=== PATIENT | male | born 1970 | race Caucasian/White ===

== ENCOUNTER 2017-01-10 19:47 | Inpatient (IN) ==
[2017-01-10] MEDS ORDERED: Naloxone 0.4 MG/ML INJ IVP PRN (21:26)
[2017-01-10] MEDS ORDERED: Ondansetron 4 MG/2 ML VIAL IVP PRN (21:26)
[2017-01-10] MEDS ORDERED: 0.9 % Sodium Chloride 1,000 ML IVC SCH (21:30)
[2017-01-10] MEDS ORDERED: Dextrose Gel 15 GM PO PRN ×2 (21:43)
[2017-01-10] MEDS ORDERED: *HR* Dextrose 50 % in Water (Syg) 50 ML SYRINGE IVP PRN (21:43)
[2017-01-10] MEDS ORDERED: D5% in Water 1,000 ML IVC PRN (21:43)
[2017-01-10] MEDS ORDERED: Pantoprazole 40 MG VIAL IVP SCH (21:45)
--- NOTE | 2017-01-10 21:46 | Internal Med History&Physical ---
Date of Encounter: 01/10/17 Time of Encounter: 21:30 Assessment and Plan (1) UGI bleed Current visit: Yes Status: Acute Acute upper GI bleed - with hematemesis and epigastric pain - probably due to mass or possible gastritis and peptic ulcer disease - chronic alcohol abuse NPO, IV fluids, IV Protonix drip, IV Zofran, IV Morphine NG tube to LIWS Chest x-ray - bibasilar subsegmental atelectasis CT abdomen and pelvis - severely distended stomach possibly due to partial outlet obstruction, potential mass and second portion of duodenum, superimposed acute pancreatitis EKG - sinus rhythm with nonspecific ST-T changes Troponin - 0.02, cycle troponin BNP - pending Dr. Mendiola consult - patient may need EGD Cardiac telemetry, pulse ox, labs in a.m., monitor closely, guarded condition (2) Gastric outlet obstruction Current visit: Yes Status: Acute Severely distended stomach possibly due to partial gastric outlet obstruction with potential mass and second portion of duodenum Keep patient NPO, continue IV fluids Dr. Mendiola consult for EGD (3) Pancreatitis Current visit: No Status: Acute Acute on chronic pancreatitis - secondary to alcohol abuse Continue IV fluids, IV Protonix, NPO Qualifiers: Chronicity: acute Pancreatitis type: alcohol induced Acute pancreatitis complication: unspecified Qualified Code(s): K85.20 - Alcohol induced acute pancreatitis without necrosis or infection (4) COPD (chronic obstructive pulmonary disease) Current visit: Yes Status: Chronic COPD, stable - not an exacerbation Continue Albuterol breathing treatment as needed, O2 via NC Qualifiers: COPD type: emphysema Emphysema type: unspecified Qualified Code(s): J43.9 - Emphysema, unspecified (5) Alcohol abuse Current visit: Yes Status: Chronic Chronic alcohol abuse - patient states he drinks about 12 pack beer daily Also about cessation, monitor for withdrawal, CIWA protocol IV thiamine, Folic acid, IV fluids (6) CHF (congestive heart failure) Current visit: No Status: Chronic Chronic CHF, unspecified type - not in exacerbation Cardiac telemetry, pulse ox, strict intake output Patient will ideally need to be on fluid restriction, but due to GI bleed he is on IV fluids and Protonix drip Watch for signs of fluid overload Qualifiers: Congestive heart failure type: unspecified congestive heart failure type Congestive heart failure chronicity: chronic Qualified Code(s): I50.9 - Heart failure, unspecified (7) Hypertension Current visit: Yes Status: Chronic Essential hypertension, controlled, monitor Hold antihypertensives as blood pressure is low Qualifiers: Hypertension type: essential hypertension Qualified Code(s): I10 - Essential (primary) hypertension (8) DM type 2 (diabetes mellitus, type 2) Current visit: Yes Status: Chronic Type 2 diabetes mellitus, insulin-dependent, hyperglycemia Continue insulin sliding scale, glucose checks, Levemir Qualifiers: Diabetes mellitus complication status: without complication Diabetes mellitus lobsterman insulin use: with lobsterman use Qualified Code(s): E11.9 - Type 2 diabetes mellitus without complications; Z79.4 - laborer [employer] (current) use of insulin (9) Hypothyroid Current visit: Yes Status: Chronic Patient is on Levothyroxine at home Qualifiers: Hypothyroidism type: unspecified Qualified Code(s): E03.9 - Hypothyroidism , unspecified (10) DVT prophylaxis Current visit: Yes Status: Acute Avoid anticoagulants, continue SCDs Internal Medicine - H&P: HPI Chief complaint: Abdominal pain, GI bleed Admitted From: Emergency Dept Plans for Post Hospital Care: Home History of present illness: Mr. Wells is a 46 year old male with past medical history of chronic pink otitis, alcohol abuse, CHF, COPD, diabetes, GERD, hyperlipidemia, hypertension and anxiety and depression. Patient presents as a transfer from [facility] for upper GI bleed and gastric outlet obstruction. Examined in the room. Patient is awake and alert. Not in any distress. Able to provide all history. He is in discomfort due to hematemesis and abdominal pain. No family members at bedside. Patient states his abdominal pain started last night. He describes it as sharp and almost constant in the epigastric region. Rates it 8/10. He states he developed vomiting with multiple episodes of coffee-ground emesis earlier this morning. He also has nausea and persistent abdominal pain. Patient states he has been drinking at least 12 pack beer daily. He again tried to drink this morning but continued to have vomiting. He denies chest pain or shortness of breath this time. Patient is requesting IV Ativan for withdrawal. No alleviating factors. Aggravated with food intake. Denies diarrhea or headache or dizziness. No fever. No other associated symptoms. No other acute complaints. Initial workup in the ED shows severely distended stomach possibly due to partial outlet obstruction with a mass in the second portion of duodenum. H&H is stable. Chest x-ray shows bibasilar atelectasis. Dr. Mendiola who is on-call for GI bleed was consulted from the EGD. Patient will be on IV Protonix drip. We will insert NG tube. He is hemodynamically stable. Patient has been explained about his guarded condition and guarded prognosis. He understood and agreed. No unanswered questions. CODE STATUS full code. Past Med Surg Social Fam HX - Past Medical History Medical history: arthritis, CHF, COPD, diabetes, GERD, hyperlipidemia, hypertension, myocardial infarction, other Psychiatric history: anxiety, depression, PTSD - Past Surgical History Surgical History: appendectomy, cholecystectomy - Social History Smoking Status: Former smoker Smokeless Tobacco Status: No Alcohol use: heavy, recent Drug use: marijuana - Family History Mother Adopted: No Living Status: Still Living Hx Family Cardiac Disorders: Yes (chf) Hx Family Respiratory Disorders: No Hx Family Cancer: Yes (palate) Hx Family GI Disorders: No Hx Family Endocrine Disorder: No Hx Family Neuromuscular Disorders: No Hx Family Neurologic Disorders: No Hx Family HEENT Disorders: No Hx Family Autoimmune Disorders: No Internal Medicine - H&P: Meds Albuterol Neb [Proventil Neb] 2.5 mg IH QID 01/01/15 [History] Insulin Glargine [Lantus] 28 unit SQ QPM 01/01/15 [History] Levothyroxine [Synthroid] 175 mcg PO DAILY 01/01/15 [History] Albuterol Sulfate [Albuterol Inhaler] 2 puff IH Q6HR PRN 05/11/15 [History] Cholecalciferol (Vitamin D3) [Vitamin D3] 2,000 unit PO DAILY 05/11/15 [History] Fluticasone Propionate Nasal [Flonase] 50 mcg NS DAILY 05/11/15 [History] Isosorbide MONOnitrate (24 HR) [Imdur] 30 mg PO DAILY 05/11/15 [History] Carvedilol [Coreg] 25 mg PO BID 03/07/16 [History] Sucralfate [Carafate] 1 gm PO TIDAC 06/14/16 [History] Insulin ASPART [Novolog] 12 unit SQ TIDAC 09/25/16 [History] Dicyclomine [Bentyl] 20 mg PO QID PRN 01/10/17 [History] Docusate [Colace] 100 mg PO BID 01/10/17 [History] Lidocaine Patch [Lidoderm 5% patch] 2 each TP DAILY 01/10/17 [History] Meloxicam [Mobic] 15 mg PO DAILY 01/10/17 [History] Multivitamin [One Daily Essential] 1 each PO DAILY 01/10/17 [History] Omeprazole [PriLOSEC] 20 mg PO BIDAC 01/10/17 [History] OxyCODONE/APAP 5/325 [Percocet 5/325 MG] 1 each PO AD 01/10/17 [History] Sennosides [Senna] 8.6 mg PO DAILY 01/10/17 [History] Spironolactone [Aldactone] 25 mg PO BID 01/10/17 [History] Thiamine (B-1) [Vitamin B-1] 100 mg PO DAILY 01/10/17 [History] 3 Allergy/AdvReac Type Severity Reaction Status Date / Time budesonide [From Symbicort] Allergy Swelling Verified 10/27/16 08:56 of Lip/Tongue/Throat Formoterol [From Symbicort] Allergy Swelling Verified 10/27/16 08:56 of Lip/Tongue/Throat tramadol Allergy See Verified 10/27/16 08:56 Comments trazodone AdvReac Irritable Verified 10/27/16 08:56 All Systems PM: A 10-system review of systems was performed and is negative for pertinent findings except as documented above in the HPI. - Constitutional Constitutional: fatigue, no fever(s), no weakness - EENT Eyes: no blurry vision Nose, mouth and throat: dry mouth - Cardiovascular Cardiovascular ROS IM: no chest pain, no diaphoresis, no dyspnea, no dyspnea on exertion, no edema, no lightheadedness, no orthopnea, no palpitations, no syncope - Respiratory Respiratory: no cough, no dyspnea, no hemoptysis, no dyspnea on exertion, no wheezing, no chest congestion - Gastrointestinal Gastrointestinal: abdominal pain, bloating, cramping, heartburn, hematemesis, nausea, vomiting, no diarrhea, no hematochezia, no loose stools, no melena - Genitourinary Genitourinary ROS male: no dysuria - Neurological Neurological ROS: no abnormal gait, no convulsions, no dizziness, no focal weakness, no numbness, no tingling - Constitutional General appearance: Present: disheveled, A&O X 3, answers questions appropriately. Absent: cooperative Exam: Patient is in discomfort due to hematemesis and abdominal pain - Head Head exam: Present: atraumatic - Eye Eye exam: Present: EOMI - ENT ENT exam: Present: mucous membranes dry Additional comments: Patient does have some dried blood around mucous membranes - Respiratory Respiratory exam: Present: wheezes (Mild bilateral). Absent: accessory muscle use, rales, respiratory distress, rhonchi, tachypnea - Cardiovascular Cardiovascular exam: Present: RRR, +S1, +S2, tachycardia - GI/Abdominal GI/Abdominal exam: Present: distended, firm (In epigastric region), tenderness ( Epigastric tenderness), no peritoneal signs. Absent: guarding, soft - Extremities Exam Extremities exam: Present: pedal edema (Bilateral lower leg 2+ pitting edema with stasis dermatitis), radial pulses palpable and symmetrical. Absent: calf tenderness, cyanotic - Neurological Exam Neurological exam: Present: alert, oriented X3, no focal deficits. Absent: facial droop, speech deficit Internal Med - H&P Results - Labs CBC & Chem 7: 01/11/17 00:49 01/11/17 00:49
[2017-01-10 22:09] LABS: Hemoglobin 16.1 g/dL (12.9-16.9)
[2017-01-10] MEDS: *HR* Morphine 2 MG/ML SYRINGE IVP PRN (22:46)
[2017-01-10] MEDS ORDERED: Folic Acid 1 MG in D5% in Water 50 ML IVPB ONE (23:42)
[2017-01-10] MEDS ORDERED: Pantoprazole 80 MG in 0.9 % Sodium Chloride 250 ML IVPB ONE (23:42)
[2017-01-10] MEDS ORDERED: Thiamine (B-1) 100 MG in D5% in Water 50 ML IVPB SCH (23:45)
[2017-01-10] MEDS ORDERED: *HR* HYDROmorphone 2 MG/ML SYRINGE IVP ONE (23:47)
[2017-01-11] MEDS ORDERED: Albuterol 2.5 MG/3 ML NEBULIZER IH PRN
[2017-01-11 00:26] LABS: Hematocrit 47.2 % (37.5-50.1); Hemoglobin 16.2 g/dL (12.9-16.9)
[2017-01-11] MEDS: *HR* LORazepam 2 MG/ML VIAL IVP PRN ×4 (00:45→23:40)
[2017-01-11] MEDS: Pantoprazole 80 MG in 0.9 % Sodium Chloride 250 ML IVC SCH ×3 (00:46→16:15)
[2017-01-11] MEDS: 0.9 % Sodium Chloride 1,000 ML IVC SCH (00:48)
[2017-01-11] MEDS: Insulin LISPRO 300 UNITS/3 ML VIAL SQ SCH ×4 (00:48→19:39)
[2017-01-11 01:00] LABS: Basophils % 0.1 %; Hematocrit 43.8 % (37.5-50.1); Hemoglobin 15.5 g/dL (12.9-16.9); Immature Granulocytes % 0.6 % (0-4); Lymphocytes # 0.6 K/mcL (0.6-4.6); Lymphocytes % 5.6 %; Mean Corpuscular HGB Conc 35.4 g/dL (31.6-35.5); Mean Corpuscular Hemoglobin 33.4 pg (28.0-33.3); Mean Corpuscular Volume 94.4 fL (83.0-100.0); Monocytes # 0.6 K/mcL (0.0-1.3); Monocytes % 5.5 %; Neutrophils # 8.9 K/mcL (1.6-8.9); Platelet Count 176 K/mcL (140-400); Red Blood Count 4.64 M/mcL (4.19-5.50); Red Cell Distribution Width 13.3 % (11.5-14.5); Segmented Neutrophils % 88.2 %
[2017-01-11 01:01] LABS: INR 1.1; Prothrombin Time 12.1 Seconds (9.4-12.1)
[2017-01-11 01:10] LABS: Calcium 9.5 mg/dL (8.6-10.8); Magnesium 1.5 mg/dL (1.6-2.6); Potassium 3.5 mEq/L (3.5-4.5)
[2017-01-11] MEDS: *HR* Morphine 2 MG/ML SYRINGE IVP PRN ×5 (03:50→21:19)
--- NOTE | 2017-01-11 07:45 | Internal Medicine Consult Note ---
Date of Encounter: 01/11/17 Time of Encounter: 07:42 - Assessment and Plan (1) Abnormal CT of the abdomen Current Visit: Yes Status: Acute Assessment and plan: He does have gastric distention with possible mass effect in the stomach.. he does require EGD. Risks and benefits discussed. He had this about a year ago. No alternative studies that can get tissue. (2) UGI bleed Current Visit: Yes Status: Acute Assessment and plan: Supect gastritis or esophagitis; doubt variceal bleed. There has not been significan blood loss. NG is in place with mimimal coffee ground material in the tube. (3) Alcohol abuse Current Visit: Yes Status: Acute (4) Pancreatitis Current Visit: No Status: Chronic Qualifiers: Chronicity: acute Pancreatitis type: alcohol induced Acute pancreatitis complication: unspecified Qualified Code(s): K85.20 - Alcohol induced acute pancreatitis without necrosis or infection Internal Medicine - CN: HPI - Data of Consult Requesting Physician: Moisés Dior MD - Consult Narrative Reason for consult: Hematemesis/ Abnormal CT scan History of present illness: Mr. Wells is a 46 year old male who presented to [facility] ED with hematemesis and upper abd. pain. This is not new for him with long standing hx of Etoh abuse. he is feeling better this AM.. less shakey he states. Eval in the ED yesterday with distended stomach, possible stomach mass with obstruction. He admits gaining some wt. of recent, has had no change in bowels or melena. Some vague usual upper abd. pain has not been worse than usual. He gets his care at the [facility]. Past Med Surg Social Fam HX - Past Medical History Medical history: arthritis, CHF, COPD, diabetes, GERD, hyperlipidemia, hypertension, myocardial infarction, other Psychiatric history: anxiety, depression, PTSD - Past Surgical History Surgical History: appendectomy, cholecystectomy - Social History Smoking Status: Former smoker Smokeless Tobacco Status: No Alcohol use: heavy, recent Drug use: marijuana - Family History Mother Adopted: No Living Status: Still Living Hx Family Cardiac Disorders: Yes (chf) Hx Family Respiratory Disorders: No Hx Family Cancer: Yes (palate) Hx Family GI Disorders: No Hx Family Endocrine Disorder: No Hx Family Neuromuscular Disorders: No Hx Family Neurologic Disorders: No Hx Family HEENT Disorders: No Hx Family Autoimmune Disorders: No - Constitutional Constitutional: anorexia - Cardiovascular Cardiovascular ROS IM: no diaphoresis, no dyspnea, no lightheadedness, no palpitations, no syncope - Respiratory Respiratory: no dyspnea, no hemoptysis - Gastrointestinal Gastrointestinal: abdominal pain, hematemesis, nausea, no hematochezia, no loose stools, no melena - Neurological Neurological ROS: tremor(s), other (Questionable historian.) Internal Medicine - CN: Meds Albuterol Neb [Proventil Neb] 2.5 mg IH QID 01/01/15 [History] Insulin Glargine [Lantus] 28 unit SQ QPM 01/01/15 [History] Levothyroxine [Synthroid] 175 mcg PO DAILY 01/01/15 [History] Albuterol Sulfate [Albuterol Inhaler] 2 puff IH Q6HR PRN 05/11/15 [History] Cholecalciferol (Vitamin D3) [Vitamin D3] 2,000 unit PO DAILY 05/11/15 [History] Fluticasone Propionate Nasal [Flonase] 50 mcg NS DAILY 05/11/15 [History] Isosorbide MONOnitrate (24 HR) [Imdur] 30 mg PO DAILY 05/11/15 [History] Carvedilol [Coreg] 25 mg PO BID 03/07/16 [History] Sucralfate [Carafate] 1 gm PO TIDAC 06/14/16 [History] Insulin ASPART [Novolog] 12 unit SQ TIDAC 09/25/16 [History] Dicyclomine [Bentyl] 20 mg PO QID PRN 01/10/17 [History] Docusate [Colace] 100 mg PO BID 01/10/17 [History] Lidocaine Patch [Lidoderm 5% patch] 2 each TP DAILY 01/10/17 [History] Meloxicam [Mobic] 15 mg PO DAILY 01/10/17 [History] Multivitamin [One Daily Essential] 1 each PO DAILY 01/10/17 [History] Omeprazole [PriLOSEC] 20 mg PO BIDAC 01/10/17 [History] OxyCODONE/APAP 5/325 [Percocet 5/325 MG] 1 each PO AD 01/10/17 [History] Sennosides [Senna] 8.6 mg PO DAILY 01/10/17 [History] Spironolactone [Aldactone] 25 mg PO BID 01/10/17 [History] Thiamine (B-1) [Vitamin B-1] 100 mg PO DAILY 01/10/17 [History] 3 Allergy/AdvReac Type Severity Reaction Status Date / Time budesonide [From Symbicort] Allergy Swelling Verified 10/27/16 08:56 of Lip/Tongue/Throat Formoterol [From Symbicort] Allergy Swelling Verified 10/27/16 08:56 of Lip/Tongue/Throat tramadol Allergy See Verified 10/27/16 08:56 Comments trazodone AdvReac Irritable Verified 10/27/16 08:56 Internal Medicine - CN: Exam - Constitutional Vitals: Temp Pulse Resp BP Pulse Ox 98.2 F 98 18 107/68 94 01/11/17 07:17 01/11/17 07:17 01/11/17 07:17 01/11/17 07:17 01/11/17 07:17 General appearance IM: Present: cooperative, A&O X 2, no acute distress - Head Head exam: Present: atraumatic - Eye Eye exam: Present: EOMI, conjuntiva pink, sclera anicteric - ENT ENT exam: Present: mucous membranes dry Additional comments: Poor dentitia - Neck Neck exam general surgery: Present: full ROM, supple, trachea midline - Respiratory Respiratory exam: Present: decreased breath sounds, CTAB - Cardiovascular Cardiovascular exam IM: Present: RRR. Absent: JVD - GI/Abdominal GI/Abdominal exam IM: Present: soft, tenderness (Mild tenderness to palpation in the upper abd. ). Absent: rebound, rigid, splenomegaly Internal Medicine - CN: Reslt - Labs CBC & Chem 7: 01/11/17 00:49 01/11/17 00:49 Labs: Short CBC 01/10/17 01/11/17 01/11/17 Range/Units 22:00 00:10 00:49 WBC 10.1 (4.3-11.1) K/mcL Hgb 16.1 D 16.2 15.5 (12.9-16.9) g/dL Hct 45.0 47.2 43.8 (37.5-50.1) % Plt Count 176 (140-400) K/mcL Neutrophils # 8.9 (1.6-8.9) K/mcL BMP 01/11/17 00:49 Sodium 134 L Potassium 3.5 Chloride 70 L Carbon Dioxide 30 H BUN 26 D Creatinine 2.01 H Glucose 271 H Calcium 9.5 Cardiac Enzymes 01/11/17 Range/Units 06:12 Troponin I 0.12 H* (0-0.03) ng/mL - ABG Interpretation ABG results: PT/INR, D-dimer PT 12.1 Seconds (9.4-12.1) 01/11/17 00:49 Consult Discharge Plan - Plan [facility]errals: [facility] [Primary Care Provider[facility] -
[2017-01-11] MEDS ORDERED: *HR* Midazolam HCl 5 MG/5 ML VIAL IVP ONE ×2 (09:16→09:43)
[2017-01-11] MEDS ORDERED: *HR* FentaNYL (PF) 100 MCG/2 ML VIAL ONE (09:17)
[2017-01-11] MEDS ORDERED: *HR* FentaNYL (PF) 100 MCG/2 ML VIAL IVP ONE (09:43)
[2017-01-11] MEDS ORDERED: Simethicone 40 MG/0.6 ML MLS IR ONE (09:43)
[2017-01-11] MEDS ORDERED: Tetracaine/Benzocaine/Butamben 200MG/SPRAY (100SPY/BOT) MM ONE (09:43)
[2017-01-11] MEDS ORDERED: 0.9 % Sodium Chloride 1,000 ML IVC SCH (09:45)
--- NOTE | 2017-01-11 09:46 | History & Physical Report ---
Date of Encounter: 01/11/17 Time of Encounter: 09:45 24 Hour HP Update - Instructions Instructions: If the History and Physical is less than 30 days old and was completed prior to A.M. admission and or procedure and has NOT been updated on calendar day of procedure please complete this update prior to performing procedure. - Update Patient reports changes in Medical Condition: No Changes in examination, assessment, or condition: No Changes in Medication: No Surgery Remains Indicated: Yes Consent for Planned Operative Procedure(s) Verified: Yes - Pre-Operative Checklist Preoperative Checklist Indicated: No Prophylactic Antibiotic Ordered: No
--- NOTE | 2017-01-11 10:39 | Event Note ---
Date of Encounter: 01/11/17 Time of Encounter: 10:32 EGD Results. Findings: 1. 900 cc's melanotic thin fluid in the stomach. 2. No evidence of GI bleeding 3. At the junction of duodenal bulb and second portion, there is severe narrowing, near total obstruction.. does not look mass like; this was biopsied. Recc: 1. Will need Surgical Eval. 2. NPO 3. OG or NG placement. 4. I discussed with the Hospitalists via phone.
--- NOTE | 2017-01-11 10:56 | Internal Med Progress Note ---
Date of Encounter: 01/11/17 Time of Encounter: 10:54 - Assessment and plan (1) Abnormal CT of the abdomen Current Visit: Yes Status: Acute Assessment and plan: Appears to have either mass or extrinsic compression in the distal end of Duodenal bulb... could transvers to a minimal degree. Biopsies taken. Does not appear mass like. This is a marked change from 2 months ago. (2) UGI bleed Current Visit: Yes Status: Ruled-out Assessment and plan: No evidence of GI bleeding.. I suspect he has gastric varices proximally.. no fresh blood or ulcerations noted with EGD (3) Alcohol abuse Current Visit: Yes Status: Chronic (4) Pancreatitis Current Visit: No Status: Chronic Qualifiers: Chronicity: acute Pancreatitis type: alcohol induced Acute pancreatitis complication: unspecified Qualified Code(s): K85.20 - Alcohol induced acute pancreatitis without necrosis or infection - Constitutional Vitals: Temp Pulse Resp BP Pulse Ox 98.2 F 105 18 140/70 92 01/11/17 10:02 01/11/17 10:22 01/11/17 10:22 01/11/17 10:22 01/11/17 10:22 General appearance: Present: cooperative, A&O X 2, no acute distress Internal Medicine: Result - Labs CBC & Chem 7: 01/11/17 00:49 01/11/17 00:49 Labs: Short CBC 01/10/17 01/11/17 01/11/17 Range/Units 22:00 00:10 00:49 WBC 10.1 (4.3-11.1) K/mcL Hgb 16.1 D 16.2 15.5 (12.9-16.9) g/dL Hct 45.0 47.2 43.8 (37.5-50.1) % Plt Count 176 (140-400) K/mcL Neutrophils # 8.9 (1.6-8.9) K/mcL BMP 01/11/17 00:49 Sodium 134 L Potassium 3.5 Chloride 70 L Carbon Dioxide 30 H BUN 26 D Creatinine 2.01 H Glucose 271 H Calcium 9.5 Cardiac Enzymes 01/11/17 Range/Units 06:12 Troponin I 0.12 H* (0-0.03) ng/mL - ABG Interpretation ABG results: PT/INR, D-dimer PT 12.1 Seconds (9.4-12.1) 01/11/17 00:49 Consult Discharge Plan - Plan [facility]errals: [facility] [Primary Care Provider] -
[2017-01-11] MEDS: Thiamine (B-1) 100 MG in D5% in Water 100 ML IVPB SCH (12:01)
[2017-01-11] MEDS ORDERED: Insulin DETEMIR 100 UNIT/ML X5UNITS SQ SCH (18:00)
[2017-01-11] MEDS ORDERED: NON-FORMULARY MEDICATION 1 EACH EACH (Insulin Glargine [Lantus] 28 UNIT) SQ SCH (18:00)
--- NOTE | 2017-01-11 18:00 | Cardiology Consult Note ---
<Jeniffer Flaherty - Last Filed: 01/11/17 18:05> Date of Encounter: 01/11/17 Time of Encounter: 16:00 Assessment and Plan (1) UGI bleed Current Visit: Yes Status: Acute Per cardiology: -ADmitted with coffee ground emesis. -Known history of ETOH abuse. -Hemoglobin stable. -S/p endoscopy. -Management per primary and surgical services. (2) Elevated troponin Current Visit: Yes Status: Acute Per cardiology: -Troponins 0.02, 0.12, 0.17. -Troponins flat and adynamic in the setting of GI bleed, ELKE. -States had one episode of chest pain while vomiting. -Denies current chest pain. -ECG with no acute ischemic changes. -Reported history of CAD. -TTE pending. -Not on asa due to GI bleed. -Not on beta curt and statin due to NPO status with NG tube to suction. -Do not suspect NSTEMI, suspect demand ischemia related to above. NO cardiac rehab warranted. -Will obtain records from [facility]. -Further recommendations pending TTE. -Recommend starting beta curt and statin when ok with surgery services. (3) ELKE (acute kidney injury) Current Visit: Yes Status: Acute Per caridology: -ELKE on admission -Creatinine 2.01. -Management per primary service. Discussion w patient/family: The assessment and plan as outlined above was discussed with the patient who expressed understanding and agreement. All questions were answered. Thank you for involving us in the care of your patient. Please call with any questions. Discussed and reviewed with . History of Present Illness Consult date: 01/11/17 Requesting physician: Justina Leahy Consult reason: elevated troponin Chief complaint: Vomiting blood History of present illness: Mr. Wells is a 46 year old male with a relevant past medical history of reported RI, CHF, COPD, ETOH abuse, anxiety, PTSD, depression, pancreatitis, GI bleed. Patient presents to [facility] with complaints of vomiting blood. Patient states he had one episode of chest pain while vomitin blood. Patient denies current chest pain. Patient states he has had some increased shortness of breath and increased fatigue. Patient reports he had a LHC "years ago" at the [facility] in [place]. Past Med Surg Social Fam HX - Past Medical History Attestation: Yes The following information was validated with the patient. Source: patient, old records reviewed Medical history: arthritis, CHF, COPD, diabetes, GERD, hyperlipidemia, hypertension, myocardial infarction, other Psychiatric history: anxiety, depression, PTSD - Past Surgical History Surgical History: appendectomy, cholecystectomy - Social History Smoking Status: Former smoker Smokeless Tobacco Status: No Alcohol use: heavy, recent Drug use: marijuana - Family History Mother Adopted: No Living Status: Still Living Hx Family Cardiac Disorders: Yes (chf) Hx Family Respiratory Disorders: No Hx Family Cancer: Yes (palate) Hx Family GI Disorders: No Hx Family Endocrine Disorder: No Hx Family Neuromuscular Disorders: No Hx Family Neurologic Disorders: No Hx Family HEENT Disorders: No Hx Family Autoimmune Disorders: No Medications and Allergies Albuterol Neb [Proventil Neb] 2.5 mg IH QID 01/01/15 [History] Insulin Glargine [Lantus] 28 unit SQ QPM 01/01/15 [History] Levothyroxine [Synthroid] 175 mcg PO DAILY 01/01/15 [History] Albuterol Sulfate [Albuterol Inhaler] 2 puff IH Q6HR PRN 05/11/15 [History] Cholecalciferol (Vitamin D3) [Vitamin D3] 2,000 unit PO DAILY 05/11/15 [History] Fluticasone Propionate Nasal [Flonase] 50 mcg NS DAILY 05/11/15 [History] Isosorbide MONOnitrate (24 HR) [Imdur] 30 mg PO DAILY 05/11/15 [History] Carvedilol [Coreg] 25 mg PO BID 03/07/16 [History] Sucralfate [Carafate] 1 gm PO TIDAC 06/14/16 [History] Insulin ASPART [Novolog] 12 unit SQ TIDAC 09/25/16 [History] Dicyclomine [Bentyl] 20 mg PO QID PRN 01/10/17 [History] Docusate [Colace] 100 mg PO BID 01/10/17 [History] Lidocaine Patch [Lidoderm 5% patch] 2 each TP DAILY 01/10/17 [History] Meloxicam [Mobic] 15 mg PO DAILY 01/10/17 [History] Multivitamin [One Daily Essential] 1 each PO DAILY 01/10/17 [History] Omeprazole [PriLOSEC] 20 mg PO BIDAC 01/10/17 [History] OxyCODONE/APAP 5/325 [Percocet 5/325 MG] 1 each PO AD 01/10/17 [History] Sennosides [Senna] 8.6 mg PO DAILY 01/10/17 [History] Spironolactone [Aldactone] 25 mg PO BID 01/10/17 [History] Thiamine (B-1) [Vitamin B-1] 100 mg PO DAILY 01/10/17 [History] 3 Allergy/AdvReac Type Severity Reaction Status Date / Time budesonide [From Symbicort] Allergy Swelling Verified 10/27/16 08:56 of Lip/Tongue/Throat Formoterol [From Symbicort] Allergy Swelling Verified 10/27/16 08:56 of Lip/Tongue/Throat tramadol Allergy See Verified 10/27/16 08:56 Comments trazodone AdvReac Irritable Verified 10/27/16 08:56 All Systems Review: A 10-system review of systems was performed and is negative for pertinent findings except as documented above in the HPI. - Constitutional Constitutional: fatigue - Cardiovascular Cardiovascular: as per HPI, dyspnea on exertion - Gastrointestinal Gastrointestinal: coffee ground emesis, nausea Physical Examination Vital Signs, Last 4 Hours Temp Pulse Resp BP Pulse Ox 01/11/17 14:42 99.0 F 59 14 119/63 94 General: Conversant, No Apparent Distress HEENT: Atraumatic, Normocephaly, Mucus Membranes Moist Neck: No JVD, Normal carotid pulses Cardiac: Reg Rate and Rhythm, Normal S1 and S2, No Murmur Lungs: Normal Breath Sounds, No Wheeze, Rales, Rhonchi Neuro: Alert and responsive, No focal deficits noted Abdomen: Soft, Other (NG tube noted to suction with coffee ground aspirate noted.) Skin: No rashes noted on visualized skin Musculoskeletal: No Chest Wall Tenderness Extremities: No Clubbing, No Cyanosis, Normal Pulses, Other (Mild bilateral pedal edema noted, non-pitting. ) Results 01/11/17 00:49 01/11/17 00:49 Lab Results Active Medications Albuterol Sulfate (Proventil Neb) 2.5 mg IH [id number] PRN; Protocol PRN Reason: Wheezing Stop: 07/13/17 00:01 Dextrose/Water (Dextrose 50% (Syg)) 25 ml IVP AD PRN PRN Reason: Hypoglycemia Stop: 07/12/17 21:44 Glucagon (Glucagen) 1 mg IM ONCE PRN PRN Reason: Hypoglycemia Stop: 07/12/17 21:44 Glucose (Gluctose) 15 gm PO ONCE PRN PRN Reason: Hypoglycemia Stop: 07/12/17 21:44 Glucose (Gluctose) 30 gm PO ONCE PRN PRN Reason: Hypoglycemia Stop: 07/12/17 21:44 Dextrose (Dextrose 5%) 1,000 mls @ 100 mls/hr IVC .Q10H PRN PRN Reason: HYPOGLYCEMIA Stop: 07/12/17 21:44 Sodium Chloride (0.9 % Sodium Chloride) 1,000 mls @ 50 mls/hr IVC .Q20H MARC Stop: 01/12/17 15:44 Last Admin: 01/11/17 00:48 Dose: 50 mls/hr Pantoprazole Sodium 80 mg/ (Sodium Chloride) 250 mls @ 25 mls/hr IVC .Q10H MARC Stop: 07/12/17 23:46 Last Admin: 01/11/17 16:15 Dose: 25 mls/hr Thiamine HCl 100 mg/ Dextrose 101 mls @ 101 mls/hr IVPB DAILY MARC Stop: 07/13/17 09:01 Last Admin: 01/11/17 12:01 Dose: 101 mls/hr Insulin Detemir (Levemir) 28 unit SQ QPM MARC Stop: 07/13/17 18:01 Insulin Human Lispro (Humalog) 0 units SQ Q6HR MARC PRN Reason: Protocol Stop: 07/13/17 00:01 Last Admin: 01/11/17 12:18 Dose: 14 units Lorazepam (Ativan) 1 mg IVP Q6HR PRN PRN Reason: Anxiety Stop: 07/12/17 23:43 Last Admin: 01/11/17 17:52 Dose: 1 mg Morphine Sulfate (Morphine Sulfate) 2 mg IVP Q4HR PRN PRN Reason: Severe Pain (7-10) Stop: 07/12/17 21:27 Last Admin: 01/11/17 16:14 Dose: 2 mg Naloxone HCl (Narcan) 0.4 mg IVP Q2MIN PRN PRN Reason: Opioid Reversal Stop: 07/12/17 21:27 Ondansetron HCl (Zofran) 4 mg IVP Q8HR PRN PRN Reason: Nausea And Vomiting Stop: 07/12/17 21:27 Last Admin: 01/10/17 22:46 Dose: 4 mg Sucralfate (Carafate) 1 gm PO BID MARC Stop: 07/13/17 09:01 Last Admin: 01/11/17 11:58 Dose: Not Given Laboratory Tests 10/30/16 01/10/17 01/10/17 06:11 16:39 16:39 Creatinine 0.64 L 1.52 H Troponin I 0.02 01/11/17 01/11/17 01/11/17 00:49 06:12 12:29 Creatinine 2.01 H Troponin I 0.12 H* 0.17 H* - Imaging and Cardiology Chest Xray: report reviewed Echo: pending - EKG Interpretation EKG results cardiology: personally reviewed (ECG with SR, HR 92. RBBB noted.), other (Telemetry reviewed with average HR previous 12 hours noted to be 94, sinus rhythm. PVCs noted.) Consult Discharge Plan - Plan [facility]errals: [facility]Primary Care Provider[facility] - <Renny Snell - Last Filed: 01/12/17 19:23> Date of Encounter: 01/11/17 Time of Encounter: 17:30 - Attending Attestation I have personally performed a face to face evaluation on this patient. I have reviewed and agree with the care plan. History and Exam by me shows: 1. Elevated troponin, most consistent with demand ischemia and poor renal clearance with ELKE, troponin levels flat, not rising, not suggestive of NSTEMI, most consistent with type II myocardial infarction. 2. CAD - previous LHC at [facility], where pt follows for cardiac care, pt reports had one severe stensis which was not amendable to revascularization, pt estimates was performed 4-5 years ago, no recent ischemic eval, recommend pt does have stress imaging when bleeding issues resolve. He prefers to continue to get cardiac care at [facility]. Aspirin and beta curt on hold due to bleeding and hypotension, would resume meds as soon as cleared by GI. 3. ELKE - acute decrease in creatinine clearance, multifactorial, contributing to poor renal excretion of troponin, and slight elevation of blood levels. 4. GI bleed; H&H stable, defer to primary team. Assessment and Plan Discussion w patient/family: The assessment and plan as outlined above was discussed with the patient and/or family members who expressed understanding and agreement. All questions were answered. Thank you for involving us in the care of your patient. Please call with any questions. History of Present Illness History of present illness: Mr. Wells is a 46 year old male All Systems Review: A 10-system review of systems was performed and is negative for pertinent findings except as documented above in the HPI. Physical Examination Vital Signs, Last 4 Hours Temp Pulse Resp BP Pulse Ox 01/11/17 20:54 97.7 F 101 17 120/75 92 Results 01/12/17 07:29 01/12/17 07:29 Lab Results 01/11/17 01/11/17 01/11/17 00:10 00:49 00:49 WBC 10.1 Hgb 16.2 15.5 Hct 47.2 43.8 Plt Count 176 INR 1.1 Sodium Potassium Chloride Carbon Dioxide BUN Creatinine Glucose Calcium Magnesium Troponin I B-Natriuretic Peptide Lipase 01/11/17 01/11/17 01/11/17 00:49 00:49 06:12 WBC Hgb Hct Plt Count INR Sodium 134 L Potassium 3.5 Chloride 70 L Carbon Dioxide 30 H BUN 26 D Creatinine 2.01 H Glucose 271 H Calcium 9.5 Magnesium 1.5 L Troponin I 0.12 H* B-Natriuretic Peptide Lipase 197 H 01/11/17 01/11/17 01/11/17 06:12 12:29 18:49 WBC Hgb Hct Plt Count INR Sodium Potassium Chloride Carbon Dioxide BUN Creatinine Glucose Calcium Magnesium Troponin I 0.17 H* 0.16 H* B-Natriuretic Peptide 394 H Lipase
--- NOTE | 2017-01-11 18:43 | Internal Med Progress Note ---
Date of Encounter: 01/11/17 Time of Encounter: 18:41 - Assessment and plan (1) UGI bleed Current Visit: Yes Status: Acute Assessment and plan: GI was consulted, EGD showed No evidence of GI bleeding..continue PPI drip, monitor H/H (2) Gastric outlet obstruction Current Visit: Yes Status: Acute Assessment and plan: EGD done, showed duodenal lesion, will consult surgery (3) COPD (chronic obstructive pulmonary disease) Current Visit: Yes Status: Chronic Assessment and plan: no exacerbation Qualifiers: COPD type: emphysema Emphysema type: unspecified Qualified Code(s): J43.9 - Emphysema, unspecified (4) CHF (congestive heart failure) Current Visit: No Status: Chronic Assessment and plan: compensated Qualifiers: Congestive heart failure type: unspecified congestive heart failure type Congestive heart failure chronicity: chronic Qualified Code(s): I50.9 - Heart failure, unspecified (5) Alcohol abuse Current Visit: Yes Status: Chronic Assessment and plan: no signs for withdrawal, monitor on CIWA (6) Obstructive sleep apnea Current Visit: No Status: Chronic (7) Hypertension Current Visit: Yes Status: Chronic Assessment and plan: continue home meds Qualifiers: Hypertension type: essential hypertension Qualified Code(s): I10 - Essential (primary) hypertension (8) Elevated troponin Current Visit: Yes Status: Acute Assessment and plan: Cardiology was consulted, troponin is adynamic. Very unlikely non-STEMI. Pending echocardiogram - Subjective Interval history: Patient was admitted for acute upper GI bleeding. He had endoscopy done today, which did not show active bleeding, he has NG draining dark fluids. Patient is still complaining epigastric pain 6 out of 10 constant burning. - Constitutional Vitals: Temp Pulse Resp BP Pulse Ox 99.0 F 59 14 119/63 94 01/11/17 14:42 01/11/17 14:42 01/11/17 14:42 01/11/17 14:42 01/11/17 14:42 CONSTITUTIONAL: patient appears as an age appropriate male in no acute distress. EYES Clear sclerae, bilateral pupils are equal, reactive to light. EMOI. RESPIRATORY: No accessory muscle use, bilateral clear to auscultation, no wheezing, no crackles/rales. CARDIOVASCULAR: Regular heart rate, normal S1 and S2, no murmurs GASTROINTESTINAL: bowel sounds present, soft, no tenderness. MUSCULOSKELETAL: Joints in normal range of motion, no clubbing, no edema, no cyanosis. Bilateral peripheral pulses 2+. NEUROLOGIC: CN II to XII are grossly intact, no focal neurological deficit. General appearance: Present: cooperative, A&O X 2, no acute distress Internal Medicine: Result - Labs CBC & Chem 7: 01/11/17 00:49 01/11/17 00:49 Labs: Short CBC 01/10/17 01/11/17 01/11/17 Range/Units 22:00 00:10 00:49 WBC 10.1 (4.3-11.1) K/mcL Hgb 16.1 D 16.2 15.5 (12.9-16.9) g/dL Hct 45.0 47.2 43.8 (37.5-50.1) % Plt Count 176 (140-400) K/mcL Neutrophils # 8.9 (1.6-8.9) K/mcL BMP 01/11/17 00:49 Sodium 134 L Potassium 3.5 Chloride 70 L Carbon Dioxide 30 H BUN 26 D Creatinine 2.01 H Glucose 271 H Calcium 9.5 Cardiac Enzymes 01/11/17 01/11/17 Range/Units 06:12 12:29 Troponin I 0.12 H* 0.17 H* (0-0.03) ng/mL - ABG Interpretation ABG results: PT/INR, D-dimer PT 12.1 Seconds (9.4-12.1) 01/11/17 00:49 Consult Discharge Plan - Plan [facility]errals: [facility] [Primary Care Provider] -
[2017-01-12] MEDS: Insulin LISPRO 300 UNITS/3 ML VIAL SQ SCH ×3 (01:00→19:56)
[2017-01-12] MEDS: 0.9 % Sodium Chloride 1,000 ML IVC SCH (01:00)
[2017-01-12] MEDS: *HR* Morphine 2 MG/ML SYRINGE IVP PRN ×5 (01:01→21:25)
[2017-01-12] MEDS: Pantoprazole 80 MG in 0.9 % Sodium Chloride 250 ML IVC SCH ×2 (04:16→17:15)
[2017-01-12] MEDS: *HR* LORazepam 2 MG/ML VIAL IVP PRN ×2 (06:05→21:26)
[2017-01-12 07:47] LABS: Basophils % 0.1 %; Eosinophils % 0.1 %; Hemoglobin 14.1 g/dL (12.9-16.9); Immature Granulocytes % 0.8 % (0-4); Immature Platelets 5.3 % (1.1-6.1); Lymphocytes # 0.7 K/mcL (0.6-4.6); Lymphocytes % 5.9 %; Mean Corpuscular HGB Conc 35.3 g/dL (31.6-35.5); Mean Corpuscular Hemoglobin 33.3 pg (28.0-33.3); Mean Corpuscular Volume 94.6 fL (83.0-100.0); Mean Platelet Volume 10.2 fL (9.4-12.4); Monocytes # 1.2 K/mcL (0.0-1.3); Monocytes % 10.4 %; Neutrophils # 9.4 K/mcL (1.6-8.9); Platelet Count 147 K/mcL (140-400); Red Blood Count 4.23 M/mcL (4.19-5.50); Red Cell Distribution Width 13.4 % (11.5-14.5); Segmented Neutrophils % 82.7 %
[2017-01-12 08:03] LABS: Calcium 8.2 mg/dL (8.6-10.8); Magnesium 2.1 mg/dL (1.6-2.6); Potassium 2.7 mEq/L (3.5-4.5)
[2017-01-12] MEDS: Thiamine (B-1) 100 MG in D5% in Water 100 ML IVPB SCH (09:10)
[2017-01-12 12:38] LABS: ABG Base Excess 23 mEq/L (-2 to 3); ABG HCO3 50 mEq/L (21-27); ABG Oxygen Saturation 94 % (95-98); ABG PCO2 54 mmHg (35-45); ABG PH 7.57 pH Units (7.32-7.45); ABG PO2 62 mmHg (85-104); ABG TCO2 51 mEq/L (20-26)
--- NOTE | 2017-01-12 12:50 | Internal Med Progress Note ---
Date of Encounter: 01/12/17 Time of Encounter: 12:46 - Assessment and plan (1) UGI bleed Current Visit: Yes Status: Acute Assessment and plan: GI was consulted, EGD showed No evidence of active GI bleeding..continue PPI drip, monitor H/H (2) Gastric outlet obstruction Current Visit: Yes Status: Acute Assessment and plan: EGD done, showed duodenal lesion, will consult surgery, continue NG (3) COPD (chronic obstructive pulmonary disease) Current Visit: Yes Status: Chronic Assessment and plan: he was on 2 L NC at home for COPD, TARAS on CPAP at night no wheezing Qualifiers: COPD type: emphysema Emphysema type: unspecified Qualified Code(s): J43.9 - Emphysema, unspecified (4) CHF (congestive heart failure) Current Visit: No Status: Chronic Assessment and plan: compensated Qualifiers: Congestive heart failure type: unspecified congestive heart failure type Congestive heart failure chronicity: chronic Qualified Code(s): I50.9 - Heart failure, unspecified (5) Alcohol abuse Current Visit: Yes Status: Chronic Assessment and plan: no signs for withdrawal, monitor on CIWA (6) Obstructive sleep apnea Current Visit: No Status: Chronic Assessment and plan: home on CPAP at night, unable to tolerate due to NG (7) Hypertension Current Visit: Yes Status: Chronic Assessment and plan: change to IV metoprolol Qualifiers: Hypertension type: essential hypertension Qualified Code(s): I10 - Essential (primary) hypertension (8) Elevated troponin Current Visit: Yes Status: Acute Assessment and plan: Cardiology was consulted, troponin is adynamic. Very unlikely non-STEMI. Pending echocardiogram will change to IV metoprolol (9) Metabolic alkalosis Current Visit: Yes Status: Acute Assessment and plan: severe hypokalemia, will replace IV KCL, check BID ABG : Ph 7.5, PCO2 54, PaO2 62, metabolic alkalosis from continuing NG acid loss (10) DM type 2 (diabetes mellitus, type 2) Current Visit: Yes Status: Chronic Assessment and plan: reduced detmir ldose to 10 units BID add SSI, due to NPO Qualifiers: Diabetes mellitus complication status: without complication Diabetes mellitus intermodal owner operator truck driver insulin use: with intermodal owner operator truck driver use Qualified Code(s): E11.9 - Type 2 diabetes mellitus without complications; Z79.4 - buttermilk drier operator (current) use of insulin (11) Pancreatitis Current Visit: No Status: Chronic Assessment and plan: continue IVF and pain controll Qualifiers: Chronicity: acute Pancreatitis type: alcohol induced Acute pancreatitis complication: unspecified Qualified Code(s): K85.20 - Alcohol induced acute pancreatitis without necrosis or infection - Subjective Interval history: Patient was admitted for acute upper GI bleeding. He had endoscopy done on which did not show active bleeding. he is doing better, lNG is draining clear liquids. Patient is still complaining epigastric pain 6 out of 10 c, and pain from NG, lhe was on 2 L NC at home for COPD. - Constitutional Vitals: Temp Pulse Resp BP Pulse Ox 97.4 F L 84 14 139/78 96 01/12/17 10:18 01/12/17 10:18 01/12/17 10:18 01/12/17 10:18 01/12/17 10:18 CONSTITUTIONAL: patient appears as an age appropriate male in no acute distress. EYES Clear sclerae, bilateral pupils are equal, reactive to light. EMOI. RESPIRATORY: No accessory muscle use, bilateral reduced BS to auscultation, no wheezing, no crackles/rales. CARDIOVASCULAR: Regular heart rate, normal S1 and S2, no murmurs GASTROINTESTINAL: bowel sounds present, soft, mild tenderness to epigastric area. MUSCULOSKELETAL: Joints in normal range of motion, no clubbing, no edema, no cyanosis. Bilateral peripheral pulses 2+. NEUROLOGIC: CN II to XII are grossly intact, no focal neurological deficit. General appearance: Present: cooperative, A&O X 2, no acute distress Internal Medicine: Result - Labs CBC & Chem 7: 01/12/17 07:29 01/12/17 07:29 Labs: Short CBC 01/12/17 Range/Units 07:29 WBC 11.4 H (4.3-11.1) K/mcL Hgb 14.1 (12.9-16.9) g/dL Hct 40.0 (37.5-50.1) % Plt Count 147 (140-400) K/mcL Neutrophils # 9.4 H (1.6-8.9) K/mcL BMP 01/12/17 07:29 Sodium 140 Potassium 2.7 L Chloride 83 L Carbon Dioxide 43 H* BUN 42 H D Creatinine 1.56 H Glucose 71 Calcium 8.2 L Cardiac Enzymes 01/11/17 01/11/17 Range/Units 12:29 18:49 Troponin I 0.17 H* 0.16 H* (0-0.03) ng/mL - ABG Interpretation ABG results: ABG ABG pH 7.57 pH Units (7.32-7.45) H 01/12/17 12:20 ABG pCO2 54 mmHg (35-45) H 01/12/17 12:20 ABG pO2 62 mmHg (85-104) L 01/12/17 12:20 ABG O2 Saturation 94 % (95-98) L 01/12/17 12:20 PT/INR, D-dimer PT 12.1 Seconds (9.4-12.1) 01/11/17 00:49 - Impressions Impressions Echocardiogram 01/11/17 07:43 Impressions: Technically adequate exam. Normal sinus rhythm. LVEF 65%. Trace mitral regurgitation. Trace tricuspid regurgitation. Left Ventricular Wall Motion: Rest Echo Findings The apex, apical septal and apical lateral mtz were hypokinetic. All other wall segments showed normal motion. Findings: Study Quality * Technically adequate exam. ECG Findings * Normal sinus rhythm. Left Ventricle * LVEF 65%. * Normal LV chamber size, wall thickness and function. Right Ventricle * Normal right ventricular structure and function. Left Atrium * Normal left atrial size. Right Atrium * Normal right atrial size. Aortic Valve * Trileaflet aortic valve. * Trileaflet aortic valve with normal function. Mitral Valve * Normal mitral valve structure and function. * Trace mitral regurgitation. Tricuspid Valve * Normal tricuspid valve structure. * Trace tricuspid regurgitation. Pulmonic Valve * Pulmonic valve is not well visualized. Interatrial Septum * No evidence of PFO by color Doppler. Aorta * Normally sized aortic root. Pericardium * The pericardium appears normal. Consult Discharge Plan - Plan [facility]errals: [facility] [Primary Care Provider] -
[2017-01-12] MEDS ORDERED: Pantoprazole 80 MG in 0.9 % Sodium Chloride 250 ML IVC SCH (13:12)
[2017-01-12] MEDS ORDERED: Ondansetron 4 MG/2 ML VIAL IVP PRN (13:12)
[2017-01-12] MEDS ORDERED: D5% in Water 1,000 ML IVC PRN (13:12)
[2017-01-12] MEDS ORDERED: Dextrose Gel 15 GM PO PRN ×2 (13:12)
[2017-01-12] MEDS ORDERED: *HR* Dextrose 50 % in Water (Syg) 50 ML SYRINGE IVP PRN (13:12)
[2017-01-12] MEDS ORDERED: Albuterol 2.5 MG/3 ML NEBULIZER IH PRN (13:12)
[2017-01-12] MEDS ORDERED: Naloxone 0.4 MG/ML INJ IVP PRN (13:12)
[2017-01-12] MEDS ORDERED: 0.9 % Sodium Chloride 1,000 ML IVC SCH (13:12)
--- NOTE | 2017-01-12 15:18 | Cardiology Progress Note ---
Date of Encounter: 01/12/17 Time of Encounter: 14:30 Assessment and Plan (1) UGI bleed Current Visit: Yes Status: Acute Per cardiology: -ADmitted with coffee ground emesis. -Known history of ETOH abuse. -Hemoglobin stable. -S/p endoscopy. -Management per primary and surgical services. (2) Elevated troponin Current Visit: Yes Status: Acute Per cardiology: -Troponins 0.02, 0.12, 0.17, 0.16. -Troponins flat and adynamic in the setting of GI bleed, ELKE. -States had one episode of chest pain while vomiting. -Denies current chest pain. -ECG with no acute ischemic changes. -Reported history of CAD. -TTE with LVEF 65%, regional wall motion abnormalities noted. Unknown if new or not, however patient repots hx of CT with blockage not amendable to PCI. -Not on asa due to GI bleed. -On IV beta curt. -Not on statin due to NPO with NG to suction. -Do not suspect NSTEMI, suspect demand ischemia related to above. NO cardiac rehab warranted. -Patient is not a candidate for invasive cardiac procedures due to bleeding. -Cardiology will sign off. Recommend patient follow up with primary livestock buyer upon discharge. -Recommend starting beta curt and statin when ok with surgery services. (3) ELKE (acute kidney injury) Current Visit: Yes Status: Acute Per caridology: -ELKE on admission -Creatinine 2.01. -Improved today. -Management per primary service. Discussion w patient/family: The assessment and plan as outlined above was discussed with the patient who expressed understanding and agreement. All questions were answered. Thank you for involving us in the care of your patient. Please call with any questions. Discussed and reviewed with . Subjective Principal diagnosis: GI bleed Interval history: Patient states he feels ok. Objective Vital Signs, Last 4 Hours Temp Pulse Resp BP Pulse Ox 01/12/17 14:04 97.8 F 86 19 124/88 95 General: Conversant, No Apparent Distress HEENT: Atraumatic, Normocephaly, Mucus Membranes Moist Neck: No JVD, Normal carotid pulses Cardiac: Reg Rate and Rhythm, Normal S1 and S2, No Murmur Lungs: Normal Breath Sounds, No Wheeze, Rales, Rhonchi Neuro: Alert and responsive, No focal deficits noted Abdomen: Soft, Other (NG tube noted to suction) Skin: No rashes noted on visualized skin Musculoskeletal: No Chest Wall Tenderness Extremities: No Clubbing, No Cyanosis, Normal Pulses, Other (Mild pedal edema noted, non-pitting. ) Results 01/12/17 07:29 01/12/17 07:29 Lab Results Impressions Echocardiogram 01/11/17 07:43 Impressions: Technically adequate exam. Normal sinus rhythm. LVEF 65%. Trace mitral regurgitation. Trace tricuspid regurgitation. Left Ventricular Wall Motion: Rest Echo Findings The apex, apical septal and apical lateral mtz were hypokinetic. All other wall segments showed normal motion. Findings: Study Quality * Technically adequate exam. ECG Findings * Normal sinus rhythm. Left Ventricle * LVEF 65%. * Normal LV chamber size, wall thickness and function. Right Ventricle * Normal right ventricular structure and function. Left Atrium * Normal left atrial size. Right Atrium * Normal right atrial size. Aortic Valve * Trileaflet aortic valve. * Trileaflet aortic valve with normal function. Mitral Valve * Normal mitral valve structure and function. * Trace mitral regurgitation. Tricuspid Valve * Normal tricuspid valve structure. * Trace tricuspid regurgitation. Pulmonic Valve * Pulmonic valve is not well visualized. Interatrial Septum * No evidence of PFO by color Doppler. Aorta * Normally sized aortic root. Pericardium * The pericardium appears normal. Active Medications Albuterol Sulfate (Proventil Neb) 2.5 mg IH [id number] PRN; Protocol PRN Reason: Wheezing Stop: 07/13/17 00:01 Albuterol Sulfate (Albuterol Inhaler) 2 puff IH [id number] PRN PRN Reason: Shortness Of Breath Stop: 07/14/17 16:01 Dextrose/Water (Dextrose 50% (Syg)) 25 ml IVP AD PRN PRN Reason: Hypoglycemia Stop: 07/12/17 21:44 Glucagon (Glucagen) 1 mg IM ONCE PRN PRN Reason: Hypoglycemia Stop: 07/12/17 21:44 Glucose (Gluctose) 15 gm PO ONCE PRN PRN Reason: Hypoglycemia Stop: 07/12/17 21:44 Glucose (Gluctose) 30 gm PO ONCE PRN PRN Reason: Hypoglycemia Stop: 07/12/17 21:44 Sodium Chloride (0.9 % Sodium Chloride) 1,000 mls @ 50 mls/hr IVC .Q20H [facility] Stop: 01/12/17 15:44 Dextrose (Dextrose 5%) 1,000 mls @ 100 mls/hr IVC .Q10H PRN PRN Reason: HYPOGLYCEMIA Stop: 07/12/17 21:44 Thiamine HCl 100 mg/ Dextrose 101 mls @ 101 mls/hr IVPB DAILY [facility] Stop: 07/13/17 09:01 Potassium Chloride (Potassium Chloride 10 Meq/100ml) 10 meq in 100 mls @ 100 mls/hr IVPB Q1H [facility] Stop: 01/12/17 17:14 Last Admin: 01/12/17 13:37 Dose: 100 mls/hr Pantoprazole Sodium 80 mg/ (Sodium Chloride) 250 mls @ 25 mls/hr IVC Q10H [facility] Stop: 07/14/17 13:13 Potassium Chloride (Potassium Chloride 10 Meq/100ml) 10 meq in 100 mls @ 100 mls/hr IVPB Q1H [facility] Stop: 01/12/17 17:29 Insulin Detemir (Levemir) 10 unit SQ BID [facility] Stop: 07/14/17 21:01 Insulin Human Lispro (Humalog) 0 units SQ Q6HR [facility] PRN Reason: Protocol Stop: 07/13/17 00:01 Lorazepam (Ativan) 1 mg IVP Q6HR PRN PRN Reason: Anxiety Stop: 07/12/17 23:43 Metoprolol Tartrate (Lopressor) 5 mg IVP Q6HR [facility] Stop: 07/14/17 18:01 Morphine Sulfate (Morphine Sulfate) 2 mg IVP Q4HR PRN PRN Reason: Severe Pain (7-10) Stop: 07/12/17 21:27 Naloxone HCl (Narcan) 0.4 mg IVP Q2MIN PRN PRN Reason: Opioid Reversal Stop: 07/12/17 21:27 Ondansetron HCl (Zofran) 4 mg IVP Q8HR PRN PRN Reason: Nausea And Vomiting Stop: 07/12/17 21:27 Sucralfate (Carafate) 1 gm PO BID [facility] Stop: 07/13/17 09:01 Laboratory Tests 01/11/17 01/11/17 01/11/17 06:12 12:29 18:49 Hgb Potassium Creatinine Troponin I 0.12 H* 0.17 H* 0.16 H* 01/12/17 01/12/17 07:29 07:29 Hgb 14.1 Potassium 2.7 L Creatinine 1.56 H Troponin I - Imaging and Cardiology Chest Xray: report reviewed Echo: report reviewed - EKG Interpretation EKG results cardiology: other (Telemetry reviewed with average HR previous 12 hours noted to be 93, sinus rhythm. PVCs and couplets noted.) Consult Discharge Plan - Plan [facility]errals: [facility]Primary Care Provider[facility] -
[2017-01-12] MEDS ORDERED: *HR* Metoprolol 5 MG/5 ML VIAL IVP SCH (18:00)
[2017-01-12] MEDS: *HR* Metoprolol 5 MG/5 ML VIAL IVP SCH ×2 (20:05→23:38)
[2017-01-12] MEDS ORDERED: Insulin DETEMIR 100 UNIT/ML X5UNITS SQ SCH (21:00)
[2017-01-12] MEDS: Insulin DETEMIR 100 UNIT/ML X5UNITS SQ SCH (21:26)
[2017-01-13] MEDS: Insulin LISPRO 300 UNITS/3 ML VIAL SQ SCH ×4 (00:16→17:41)
[2017-01-13] MEDS: *HR* Morphine 2 MG/ML SYRINGE IVP PRN ×4 (01:30→15:55)
[2017-01-13] MEDS: Pantoprazole 80 MG in 0.9 % Sodium Chloride 250 ML IVC SCH (01:40)
[2017-01-13 03:20] LABS: Basophils % 0.2 %; Hematocrit 40.9 % (37.5-50.1); Hemoglobin 13.5 g/dL (12.9-16.9); Immature Granulocytes % 0.2 % (0-4); Lymphocytes # 0.8 K/mcL (0.6-4.6); Lymphocytes % 12.4 %; Mean Corpuscular Hemoglobin 32.6 pg (28.0-33.3); Mean Corpuscular Volume 98.8 fL (83.0-100.0); Mean Platelet Volume 9.8 fL (9.4-12.4); Monocytes # 0.6 K/mcL (0.0-1.3); Monocytes % 9.3 %; Neutrophils # 5.1 K/mcL (1.6-8.9); Platelet Count 100 K/mcL (140-400); Red Blood Count 4.14 M/mcL (4.19-5.50); Segmented Neutrophils % 77.9 %
[2017-01-13 03:40] LABS: BUN/Creatinine Ratio 30 (6-26); Calcium 8.4 mg/dL (8.6-10.8); Carbon Dioxide 36 mEq/L (19-29); Chloride 86 mEq/L (98-109); Glucose 192 mg/dL (70-99); Magnesium 1.8 mg/dL (1.6-2.6); Osmolality,Calculated 290 (280-300); Potassium 2.9 mEq/L (3.5-4.5); Sodium 135 mEq/L (136-145); eGFR For African Americans > 60 (> 60); eGFR For Non-African Americans > 60 (> 60)
[2017-01-13] MEDS: *HR* LORazepam 2 MG/ML VIAL IVP PRN ×3 (03:45→16:33)
[2017-01-13 04:12] LABS: Blood Urea Nitrogen 26 mg/dL (8-26)
[2017-01-13] MEDS ORDERED: Potassium Chloride 40 MEQ, Lidocaine 1% 2 ML in D5% in Water 500 ML IVPB ONE (05:09)
[2017-01-13] MEDS: *HR* Metoprolol 5 MG/5 ML VIAL IVP SCH ×3 (05:46→17:41)
[2017-01-13] MEDS: Insulin DETEMIR 100 UNIT/ML X5UNITS SQ SCH (08:49)
[2017-01-13] MEDS ORDERED: Thiamine (B-1) 100 MG in D5% in Water 100 ML IVPB SCH (09:00)
--- NOTE | 2017-01-13 10:52 | Internal Med Progress Note ---
<Steve Goldstein Steve - Last Filed: 01/13/17 11:18> Date of Encounter: 01/13/17 Time of Encounter: 08:00 - Assessment and plan (1) UGI bleed Current Visit: Yes Status: Acute Assessment and plan: Mr. Wells was admitted with an upper GI bleed with symptoms of hematemesis and epigastric discomfort. CT of the abdomen demonstrated dilated gastric cavity and second part of duodenal obstruction. - NG tube placed with 1740 mL drainage since placement. - EGD demonstrated normal esophagus, excessive gastric fluid. Gastric varices, acquired duodenal stenosis which received a biopsy, no signs of bleeding identified. At the time of the procedure 900 mL of melenic fluid was suctioned from the stomach. - Hemoglobin remains stable, no current signs of GI bleeding no output through NG tube currently. Plan: - Continue to monitor symptoms - Continue NG tube until further recommendations from general surgery. - Discontinue Protonix drip, start IV Protonix twice a day - May benefit from octreotide, the patient is resumed bleeding given gastric varices. - Continue oral Carafate when able to swallow and NG tube removed. (2) Gastric outlet obstruction Current Visit: Yes Status: Acute Assessment and plan: Duodenal lesion identified on EGD. Biopsy taken with results pending. General surgery consulted, spoke with Dr. Michael who will see and evaluate the patient. Plan: - Continue NG tube - Continue nothing by mouth - Await further recommendations per general surgery. (3) COPD (chronic obstructive pulmonary disease) Current Visit: Yes Status: Chronic Assessment and plan: Known history of COPD oxygen dependent 2 L baseline at home. Patient also has history of TARAS on CPAP at night. - Currently stable - Continue albuterol nebulizer when necessary Qualifiers: COPD type: emphysema Emphysema type: unspecified Qualified Code(s): J43.9 - Emphysema, unspecified (4) CHF (congestive heart failure) Current Visit: No Status: Chronic Assessment and plan: Mr. Wells is a history of GA and coronary artery disease without previous stent placement. Echocardiogram demonstrated preserved ejection fraction. - Continue to hold anticoagulation including aspirin in the setting of upper GI bleed. - Start atorvastatin 80 mg daily when patient is able to take oral medications, continue metoprolol Qualifiers: Congestive heart failure type: unspecified congestive heart failure type Congestive heart failure chronicity: chronic Qualified Code(s): I50.9 - Heart failure, unspecified (5) Alcohol abuse Current Visit: Yes Status: Chronic Assessment and plan: no signs for withdrawal, monitor on CIWA - Continue thiamine IV - Start folate daily (6) Hypertension Current Visit: Yes Status: Chronic Assessment and plan: History of hypertension, current blood pressure is well controlled on current regimen continue. Qualifiers: Hypertension type: essential hypertension Qualified Code(s): I10 - Essential (primary) hypertension (7) Hypothyroid Current Visit: Yes Status: Chronic Assessment and plan: Patient has a history of hypothyroidism, currently holding his levothyroxine given no oral intake with upper GI bleeding and obstruction. Home dose 175 g levothyroxine, continue when patient is able to resume oral intake. Qualifiers: Hypothyroidism type: unspecified Qualified Code(s): E03.9 - Hypothyroidism , unspecified (8) DM type 2 (diabetes mellitus, type 2) Current Visit: Yes Status: Chronic Assessment and plan: Patient known type II diabetic. Currently nothing by mouth - Continue low-dose sliding scale - To six-hour glucose checks. 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 (10) DVT prophylaxis Current Visit: Yes Status: Acute Assessment and plan: Lower extremity compression devices. (11) Metabolic alkalosis Current Visit: Yes Status: Acute Assessment and plan: severe hypokalemia, will replace IV KCL, check BID ABG 01/12/2017 : Ph 7.5, PCO2 54, PaO2 62, metabolic alkalosis from continuing NG acid loss - Currently no output from NG tube. (12) Hypokalemia Current Visit: Yes Status: Acute Assessment and plan: Current potassium 2.9 with NG tube placement. Likely secondary to significant gastric output associated with duodenal obstruction. - Currently receiving IV potassium given NG tube suction. - Recheck potassium level at 1400 - Subjective Interval history: Mr. Wells 46-year-old male is been seen and evaluated patient bedside this morning. He is alert awake interactive no acute distress. He complains of discomfort from his NG tube but denies any nausea vomiting or any spitting up of blood. He states he has been passing gas, and has not noticed any output through his NG tube on suction. He denies any abdominal pain, abdominal discomforts or bloating. He denies having a bowel movement but has passed gas. He denies noticing any blood in his stool prior. He states that he needs to stop his bad behaviors including drinking alcohol. After discussion regarding surgery evaluation he understands and will wait to have the NG tube out. - Constitutional Vitals: Temp Pulse Resp BP Pulse Ox 98.0 F 78 18 127/73 97 01/13/17 07:46 01/13/17 07:46 01/13/17 07:46 01/13/17 07:46 01/13/17 07:46 General appearance: Present: cooperative, A&O X 2, no acute distress Exam: General: Patient alert, awake, oriented 3, interactive, in no acute distress HEENT: Normocephalic, atraumatic, pupils equal reactive to light, nasal cavity with NG tube in place, mucous membranes dry. neck supple trachea midline no palpable lymphadenopathy, no thyromegaly. Chest: Symmetric bilateral correlating with respiratory effort, effort nonlabored. Cardiac: Irregularly irregular heart rate and rhythm, Radial pulses 2+ bilateral , posterior tibial and dorsal pedal pulses 2+ bilateral. Respiratory: Clear to auscultation all lung corcoran Abdomen: Soft, nontender, positive bowel sounds, no palpable masses appreciated on examination Extremities: Symmetric bilateral, bilateral lower extremities trace edema, bilateral lower extremity venous stasis dermatitis. patient moving all 4 extremities spontaneously. Neurologic: No focal deficits appreciated on examination. Face symmetric, muscle strength symmetric bilateral upper and lower extremities. Internal Medicine: Result - Labs CBC & Chem 7: 01/13/17 03:11 01/13/17 03:11 Labs: Short CBC 01/13/17 Range/Units 03:11 WBC 6.5 (4.3-11.1) K/mcL Hgb 13.5 (12.9-16.9) g/dL Hct 40.9 (37.5-50.1) % Plt Count 100 L (140-400) K/mcL Neutrophils # 5.1 (1.6-8.9) K/mcL BMP 11/27/17 03:11 Sodium 135 L Potassium 2.9 L Chloride 86 L Carbon Dioxide 36 H BUN 26 D Creatinine 0.88 Glucose 192 H Calcium 8.4 L - ABG Interpretation ABG results: ABG ABG pH 7.57 pH Units (7.32-7.45) H 01/12/17 12:20 ABG pCO2 54 mmHg (35-45) H 01/12/17 12:20 ABG pO2 62 mmHg (85-104) L 01/12/17 12:20 ABG O2 Saturation 94 % (95-98) L 01/12/17 12:20 PT/INR, D-dimer PT 12.1 Seconds (9.4-12.1) 01/11/17 00:49 Consult Discharge Plan - Plan [facility]errals: [facility]Primary Care Provider[facility] - 01/29/17 8:30 am (THIS APPOINTMENT IS WITH THE [facility]) <Marco Montes De Oca H - Last Filed: 01/13/17 18:16> Date of Encounter: 01/13/17 - Constitutional Vitals: Temp Pulse Resp BP Pulse Ox 97.7 F 73 16 117/69 97 01/13/17 16:10 01/13/17 17:48 01/13/17 17:48 01/13/17 16:10 01/13/17 17:48 Internal Medicine: Result - Labs CBC & Chem 7: 01/13/17 03:11 01/13/17 13:44 Labs: Short CBC 01/13/17 Range/Units 03:11 WBC 6.5 (4.3-11.1) K/mcL Hgb 13.5 (12.9-16.9) g/dL Hct 40.9 (37.5-50.1) % Plt Count 100 L (140-400) K/mcL Neutrophils # 5.1 (1.6-8.9) K/mcL BMP 01/13/17 01/13/17 03:11 13:44 Sodium 135 L Potassium 2.9 L 3.5 Chloride 86 L Carbon Dioxide 36 H BUN 26 D Creatinine 0.88 Glucose 192 H Calcium 8.4 L Liver Function 01/13/17 Range/Units 03:11 Total Bilirubin 1.7 H (0.2-1.2) mg/dL Direct Bilirubin 0.8 H (0.0-0.5) mg/dL AST 37 H (5-34) Units/L ALT 27 (0-55) Units/L Alkaline Phosphatase 101 (38-126) Units/L Albumin 2.5 L D (3.5-5.0) g/dL - ABG Interpretation ABG results: ABG ABG pH 7.57 pH Units (7.32-7.45) H 01/12/17 12:20 ABG pCO2 54 mmHg (35-45) H 01/12/17 12:20 ABG pO2 62 mmHg (85-104) L 01/12/17 12:20 ABG O2 Saturation 94 % (95-98) L 01/12/17 12:20 PT/INR, D-dimer PT 12.1 Seconds (9.4-12.1) 01/11/17 00:49 - Attending Attestation transfer to [facility]
--- NOTE | 2017-01-13 10:54 | General Surgery Consult Note ---
Addendum entered and electronically signed by Rachel Finch CNP 01/13/17 13: 19: Reviewed imaging and endoscopy by Dr. Reynoso and reviewed clinical course and findings with Dr. Michael. Pt is recommended transfer to [facility] given findings of gastric varices and portal HTN. Discussed with primary team resident and attending who are in agreement and will facility transfer. Thank you for allowing us to participate in Mr. Wells. Original Note: <Rachel Finch - Last Filed: 01/13/17 13:02> Date of Encounter: 01/13/17 Time of Encounter: 10:54 Assessment and Plan (1) Gastric outlet obstruction Current Visit: Yes Status: Acute Continue NG to LIWS. May have ice chips for pleasure. Chloraseptic at bedside for sore throat MRI vs MRCP to further evaluate findings at the duodenum and pancreas Continue GI and DVT prophylaxis Serial abdominal exams We will continue to follow along with you Will review with Dr. Michael (2) UGI bleed Current Visit: Yes Status: Acute See above (3) Alcohol abuse Current Visit: Yes Status: Chronic CIWAs per primary medicine Pt is willing to complete in-patient detox and rehab if indicated (patient voluntarily states this ) (4) DM type 2 (diabetes mellitus, type 2) Current Visit: Yes Status: Chronic Qualifiers: Diabetes mellitus complication status: without complication Diabetes mellitus longitudinal float operator insulin use: with longitudinal float operator use Qualified Code(s): E11.9 - Type 2 diabetes mellitus without complications; Z79.4 - intermediate (current) use of insulin; Z79.4 - intermediate (current) use of insulin; Z79.4 - intermediate ( current) use of insulin; Z79.4 - intermediate (current) use of insulin (5) Pancreatitis Current Visit: No Status: Chronic Qualifiers: Chronicity: acute Pancreatitis type: alcohol induced Acute pancreatitis complication: unspecified Qualified Code(s): K85.20 - Alcohol induced acute pancreatitis without necrosis or infection History of Present Illness Consult date: 01/13/17 (Dr. Marck Reynoso) Reason for consult: other (GIB) Requesting physician: Moisés Dior History of present illness: Consulted Physician: Dr. Marck Reynoso Reason for Consult: Duodenal/pancreatic mass Mikel is a 46 year old male with a past history of T2 DM, COPD, ASHD , AMI (unknown vessel that was not amenable to revascularization, CHF, hypertension, gastroenteritis, alcoholism (admits to8-24 beers daily), acute and chronic pancreatitis, smoking history of 2 to 3 packs per day for greater than 30 years, state smoking cessation approximately 2 months ago, recreational illicit marijuana use approximately weekly, and a surgical history of cholecystectomy, appendectomy, and right leg surgery. He does not work. He reports a history of a colonoscopy completed by the [facility]; however, he is unable to remember the date and he denies an abnormal pathology regarding; however per Dr. Cali note on his EGD completed on 01/11/2017 there were significant changes in the stomach and duodenum detailed below. He presented on 01/10/2017 with complaints of abdominal discomfort, upper G.I. bleed and gastric outlet obstruction (transferred from [facility]). He reports a 2 day history of abdominal pain, denies changes in bowel habits, black, bloody, or tarry stool prior to admission. He states that the coffee ground emesis started on the morning of admission. He also reported nausea and cold chills. He again stated that he drinks at least 8 to 24 beers daily and states that he did drink the morning of presentation "to call my stomach down." He denies chest pain, shortness of breath, headache, dizziness, but endorses abdominal discomfort and coffee ground emesis as previously described, feelings of cold chills, generalized weakness and fatigue, nausea, vomiting, anxiety and depression as well as alcoholism. The initial workup in the ED showed a severely distended stomach possibly due to a partial outlet obstruction with a mass in the 2nd portion of the duodenum. Dr. Cali was uncalled for G.I. bleed and completed in EGD on 01/11/2017 which revealed a normal esophagus, excessive fluid in the entire stomach, varices were found in the gastric body, and acquired severe stenosis was found in the 2nd portion of the duodenum and was transverse but not fully. Biopsies were taken at that time. There was approximately 900 mL of melancholic fluids suctioned from the stomach during the procedure. In NG tube was left in place. Cardiology was consult for an elevated troponin thought to be related to demand ischemia. An echocardiogram was completed during the submission which revealed ejection fraction of 65%, trace mitral and tricuspid regurgitation, and normal sinus rhythm. His hemoglobin is stable at 13.5. He has not received any transfusions the submission. Past Med Surg Social Fam HX - Past Medical History Source: patient, old records reviewed Medical history: arthritis, CHF, COPD, diabetes, GERD, hyperlipidemia, hypertension, myocardial infarction, other Psychiatric history: anxiety, depression, PTSD - Past Surgical History Surgical History: appendectomy, cholecystectomy, other (right leg orthopedic surgery) - Social History Smoking Status: Former smoker Packs per day: 3 PPD for >30 years, quit in 10/2016 Smokeless Tobacco Status: No Alcohol use: heavy, recent Drug use: marijuana Occupational status: unemployed, retired Current living situation: Home - Independent Activity Level: Independent ambulation Recent Out of Country Travel Within the Last 8 Weeks: No Exposure or Possible Exposure to Illness During Travel: No - Family History Mother Adopted: No Living Status: Still Living Hx Family Cardiac Disorders: Yes (chf) Hx Family Respiratory Disorders: No Hx Family Cancer: Yes (palate) Hx Family GI Disorders: No Hx Family Endocrine Disorder: No Hx Family Neuromuscular Disorders: No Hx Family Neurologic Disorders: No Hx Family HEENT Disorders: No Hx Family Autoimmune Disorders: No Medications and Allergies 3 Allergy/AdvReac Type Severity Reaction Status Date / Time budesonide [From Symbicort] Allergy Swelling Verified 10/27/16 08:56 of Lip/Tongue/Throat Formoterol [From Symbicort] Allergy Swelling Verified 10/27/16 08:56 of Lip/Tongue/Throat tramadol Allergy See Verified 10/27/16 08:56 Comments trazodone AdvReac Irritable Verified 10/27/16 08:56 Review of Systems All systems PM: reviewed and no additional remarkable complaints except as stated All systems PM: A 10-system review of systems was performed and is negative for pertinent findings except as documented above in the HPI. General Surgery Exam Initial Vital Signs Pulse Ox 93 01/10/17 22:15 - General physical appearance well developed, well nourished, no distress - Eyes normal ocular movement - ENT normal nares (Left NG noted), normal mucosa, atraumatic, normocephalic - Neck trachea midline, no venous distension - Respiratory normal expansion, normal respiratory effort, clear to percussion, clear to auscultation - Cardiovascular Cardiovascular exam: Present: RRR, 15, 16 - Abdomen Abdomen general surgery: Present: bowel sounds present, soft, tender Abdominal Tenderness: Present: RUQ, LUQ - Integumentary Integumentary general surgery: Present: warm and dry, no abnormal pigmentation - Neurologic Present: CN 2-12 grossly intact, normal coordination, normal sensation - Musculoskeletal Present: normal gait, normal posture - Psychiatric Psychiatric general surgery: Present: A&Ox3, appropriate, oriented to person, oriented to place, oriented to time, speech is normal, memory intact Exam Initial Vital Signs Pulse Ox 93 01/10/17 22:15 Results - Labs 01/13/17 03:11 01/13/17 03:11 Abnormal lab results RBC 4.14 M/mcL (4.19-5.50) L 01/13/17 03:11 Plt Count 100 K/mcL (140-400) L 01/13/17 03:11 ABG pH 7.57 pH Units (7.32-7.45) H 01/12/17 12:20 ABG pCO2 54 mmHg (35-45) H 01/12/17 12:20 ABG pO2 62 mmHg (85-104) L 01/12/17 12:20 ABG HCO3 50 mEq/L (21-27) H 01/12/17 12:20 ABG Total CO2 51 mEq/L (20-26) H 01/12/17 12:20 ABG O2 Saturation 94 % (95-98) L 01/12/17 12:20 ABG Base Excess 23 mEq/L (-2 to 3) H 01/12/17 12:20 Sodium 135 mEq/L (136-145) L 01/13/17 03:11 Potassium 2.9 mEq/L (3.5-4.5) L 01/13/17 03:11 Chloride 86 mEq/L (98-109) L 01/13/17 03:11 Carbon Dioxide 36 mEq/L (19-29) H 01/13/17 03:11 BUN/Creatinine Ratio 30 (6-26) H 01/13/17 03:11 Glucose 192 mg/dL (70-99) H 01/13/17 03:11 POC Glucose 152 (58-89) H 01/13/17 00:14 Calcium 8.4 mg/dL (8.6-10.8) L 01/13/17 03:11 Troponin I 0.16 ng/mL (0-0.03) H* 01/11/17 18:49 B-Natriuretic Peptide 394 pg/mL (0-100) H 01/11/17 06:12 Lipase 197 Units/L (8-78) H 01/11/17 00:49 Diabetes panel 01/13/17 Range/Units 03:11 Sodium 135 L (136-145) mEq/L Potassium 2.9 L (3.5-4.5) mEq/L Chloride 86 L (98-109) mEq/L Carbon Dioxide 36 H (19-29) mEq/L BUN 26 D (8-26) mg/dL Creatinine 0.88 (0.72-1.25) mg/dL Glucose 192 H (70-99) mg/dL Calcium 8.4 L (8.6-10.8) mg/dL Calcium panel 01/13/17 Range/Units 03:11 Calcium 8.4 L (8.6-10.8) mg/dL Pituitary panel 01/13/17 Range/Units 03:11 Sodium 135 L (136-145) mEq/L Potassium 2.9 L (3.5-4.5) mEq/L Chloride 86 L (98-109) mEq/L Carbon Dioxide 36 H (19-29) mEq/L BUN 26 D (8-26) mg/dL Creatinine 0.88 (0.72-1.25) mg/dL Glucose 192 H (70-99) mg/dL Calcium 8.4 L (8.6-10.8) mg/dL Adrenal panel 01/13/17 Range/Units 03:11 Sodium 135 L (136-145) mEq/L Potassium 2.9 L (3.5-4.5) mEq/L Chloride 86 L (98-109) mEq/L Carbon Dioxide 36 H (19-29) mEq/L BUN 26 D (8-26) mg/dL Creatinine 0.88 (0.72-1.25) mg/dL Glucose 192 H (70-99) mg/dL Calcium 8.4 L (8.6-10.8) mg/dL All other labs normal. - Imaging Chest x-ray: report reviewed CT scan - abdomen: report reviewed US - abdomen: report reviewed (From 2015) EKG: report reviewed Additional studies: Echocardiogram 01/11/17 07:43 Impressions: Technically adequate exam. Normal sinus rhythm. LVEF 65%. Trace mitral regurgitation. Trace tricuspid regurgitation. Left Ventricular Wall Motion: Rest Echo Findings The apex, apical septal and apical lateral mtz were hypokinetic. All other wall segments showed normal motion. Findings: Study Quality * Technically adequate exam. ECG Findings * Normal sinus rhythm. Left Ventricle * LVEF 65%. * Normal LV chamber size, wall thickness and function. Right Ventricle * Normal right ventricular structure and function. Left Atrium * Normal left atrial size. Right Atrium * Normal right atrial size. Aortic Valve * Trileaflet aortic valve. * Trileaflet aortic valve with normal function. Mitral Valve * Normal mitral valve structure and function. * Trace mitral regurgitation. Tricuspid Valve * Normal tricuspid valve structure. * Trace tricuspid regurgitation. Pulmonic Valve * Pulmonic valve is not well visualized. Interatrial Septum * No evidence of PFO by color Doppler. Aorta * Normally sized aortic root. Pericardium * The pericardium appears normal. Consult Discharge Plan - Plan [facility] Provider[facility] - 01/29/17 8:30 am (THIS APPOINTMENT IS WITH THE BLUE TEAM) <Hipolito Michael M - Last Filed: 01/13/17 16:59> Date of Encounter: 01/13/17 Review of Systems All systems PM: A 10-system review of systems was performed and is negative for pertinent findings except as documented above in the HPI. General Surgery Exam Initial Vital Signs Pulse Ox 93 01/10/17 22:15 Exam Initial Vital Signs Pulse Ox 93 01/10/17 22:15 Results - Labs 01/13/17 03:11 01/13/17 13:44 Abnormal lab results RBC 4.14 M/mcL (4.19-5.50) L 01/13/17 03:11 Plt Count 100 K/mcL (140-400) L 01/13/17 03:11 ABG pH 7.57 pH Units (7.32-7.45) H 01/12/17 12:20 ABG pCO2 54 mmHg (35-45) H 01/12/17 12:20 ABG pO2 62 mmHg (85-104) L 01/12/17 12:20 ABG HCO3 50 mEq/L (21-27) H 01/12/17 12:20 ABG Total CO2 51 mEq/L (20-26) H 01/12/17 12:20 ABG O2 Saturation 94 % (95-98) L 01/12/17 12:20 ABG Base Excess 23 mEq/L (-2 to 3) H 01/12/17 12:20 Sodium 135 mEq/L (136-145) L 01/13/17 03:11 Chloride 86 mEq/L (98-109) L 01/13/17 03:11 Carbon Dioxide 36 mEq/L (19-29) H 01/13/17 03:11 BUN/Creatinine Ratio 30 (6-26) H 01/13/17 03:11 Glucose 192 mg/dL (70-99) H 01/13/17 03:11 POC Glucose 152 (58-89) H 01/13/17 00:14 Calcium 8.4 mg/dL (8.6-10.8) L 01/13/17 03:11 Total Bilirubin 1.7 mg/dL (0.2-1.2) H 01/13/17 03:11 Direct Bilirubin 0.8 mg/dL (0.0-0.5) H 01/13/17 03:11 AST 37 Units/L (5-34) H 01/13/17 03:11 Troponin I 0.16 ng/mL (0-0.03) H* 01/11/17 18:49 B-Natriuretic Peptide 394 pg/mL (0-100) H 01/11/17 06:12 Albumin 2.5 g/dL (3.5-5.0) L D 01/13/17 03:11 Globulin 3.8 g/dL (2.4-3.5) H 01/13/17 03:11 Albumin/Globulin Ratio 0.7 (1.1-2.2) L 01/13/17 03:11 Lipase 197 Units/L (8-78) H 01/11/17 00:49 Diabetes panel 01/13/17 01/13/17 Range/Units 03:11 13:44 Sodium 135 L (136-145) mEq/L Potassium 2.9 L 3.5 (3.5-4.5) mEq/L Chloride 86 L (98-109) mEq/L Carbon Dioxide 36 H (19-29) mEq/L BUN 26 D (8-26) mg/dL Creatinine 0.88 (0.72-1.25) mg/dL Glucose 192 H (70-99) mg/dL Calcium 8.4 L (8.6-10.8) mg/dL AST 37 H (5-34) Units/L ALT 27 (0-55) Units/L Alkaline Phosphatase 101 (38-126) Units/L Albumin 2.5 L D (3.5-5.0) g/dL Calcium panel 01/13/17 Range/Units 03:11 Calcium 8.4 L (8.6-10.8) mg/dL Albumin 2.5 L D (3.5-5.0) g/dL Pituitary panel 01/13/17 01/13/17 Range/Units 03:11 13:44 Sodium 135 L (136-145) mEq/L Potassium 2.9 L 3.5 (3.5-4.5) mEq/L Chloride 86 L (98-109) mEq/L Carbon Dioxide 36 H (19-29) mEq/L BUN 26 D (8-26) mg/dL Creatinine 0.88 (0.72-1.25) mg/dL Glucose 192 H (70-99) mg/dL Calcium 8.4 L (8.6-10.8) mg/dL Adrenal panel 01/13/17 01/13/17 Range/Units 03:11 13:44 Sodium 135 L (136-145) mEq/L Potassium 2.9 L 3.5 (3.5-4.5) mEq/L Chloride 86 L (98-109) mEq/L Carbon Dioxide 36 H (19-29) mEq/L BUN 26 D (8-26) mg/dL Creatinine 0.88 (0.72-1.25) mg/dL Glucose 192 H (70-99) mg/dL Calcium 8.4 L (8.6-10.8) mg/dL Total Bilirubin 1.7 H (0.2-1.2) mg/dL AST 37 H (5-34) Units/L ALT 27 (0-55) Units/L Alkaline Phosphatase 101 (38-126) Units/L Albumin 2.5 L D (3.5-5.0) g/dL All other labs normal. - Attending Attestation Noted review of this patient's history and examination by my colleague Dr. Reynoso.
[2017-01-13 11:51] LABS: Alanine Aminotransferase 27 Units/L (0-55); Albumin 2.5 g/dL (3.5-5.0); Albumin/Globulin Ratio 0.7 (1.1-2.2); Alkaline Phosphatase 101 Units/L (38-126); Aspartate Amino Transferase 37 Units/L (5-34); Bilirubin,Direct 0.8 mg/dL (0.0-0.5); Bilirubin,Indirect 0.9 mg/dL (0.0-1.2); Bilirubin,Total 1.7 mg/dL (0.2-1.2); Globulin 3.8 g/dL (2.4-3.5); Total Protein 6.3 g/dL (6.0-8.3)
--- NOTE | 2017-01-13 14:36 | Discharge Summary ---
<Steve Goldstein - Last Filed: 01/13/17 15:19> Date of Encounter: 01/13/17 Time of Encounter: 14:34 - Discharge Diagnosis (1) UGI bleed Priority: Primary Status: Acute (2) Gastric outlet obstruction Priority: Primary Status: Acute (3) COPD (chronic obstructive pulmonary disease) Priority: Secondary Status: Chronic Qualifiers: COPD type: emphysema Emphysema type: unspecified Qualified Code(s): J43.9 - Emphysema, unspecified (4) CHF (congestive heart failure) Priority: Secondary Status: Chronic Qualifiers: Congestive heart failure type: unspecified congestive heart failure type Congestive heart failure chronicity: chronic Qualified Code(s): I50.9 - Heart failure, unspecified (5) Alcohol abuse Priority: Secondary Status: Chronic (6) Hypertension Priority: Secondary Status: Chronic Qualifiers: Hypertension type: essential hypertension Qualified Code(s): I10 - Essential (primary) hypertension (7) Hypothyroid Priority: Secondary Status: Chronic Qualifiers: Hypothyroidism type: unspecified Qualified Code(s): E03.9 - Hypothyroidism , unspecified (8) DM type 2 (diabetes mellitus, type 2) Priority: Secondary Status: Chronic Qualifiers: Diabetes mellitus complication status: without complication Diabetes mellitus fci insulin use: with fci use Qualified Code(s): E11.9 - Type 2 diabetes mellitus without complications; Z79.4 - custodial (current) use of insulin; Z79.4 - truck terminal manager (current) use of insulin; Z79.4 - custodial ( current) use of insulin; Z79.4 - truck terminal manager (current) use of insulin (9) ELKE (acute kidney injury) Priority: Secondary Status: Acute (10) DVT prophylaxis Priority: Secondary Status: Acute (11) Metabolic alkalosis Priority: Secondary Status: Acute (12) Hypokalemia Priority: Secondary Status: Acute - Discharge Medications Allergies/Adverse Reactions: 3 Allergy/AdvReac Type Severity Reaction Status Date / Time budesonide [From Symbicort] Allergy Swelling Verified 10/27/16 08:56 of Lip/Tongue/Throat Formoterol [From Symbicort] Allergy Swelling Verified 10/27/16 08:56 of Lip/Tongue/Throat tramadol Allergy See Verified 10/27/16 08:56 Comments trazodone AdvReac Irritable Verified 10/27/16 08:56 Procedures/tests Complete & Pending: Procedures Performed prior 72 hours Category Date Time Status ECG 12 lead ECG [ECG] Routine Y 01/10/17 21:26 Ordered ECG 12 lead ECG [ECG] Routine Y 01/12/17 07:02 Completed EV echocardiogram Stat Y 01/11/17 07:43 Completed Date of admission: 01/11/17 00:14 Primary care physician: PCP [facility] Consults: 01/10/17 21:30 Consult to Physician [CONS] Routine Consulting Provider: Emil Mendiola Reason for Consult: gi bleed Call Completed: Yes 01/11/17 07:44 Consult to Cardiology [CONS] Routine Comment: Consulting Provider: Cardiology [facility] Reason for Consult: Elevated Troponin Call Completed: No 01/11/17 18:52 Consult to Surgery [CONS] Routine Consulting Provider: [facility] Reason for Consult: gastric outlet obstruction, duodenal lesion Call Completed: No Discharging clinician: Steve Goldstein Anticipated date of discharge: 01/13/17 - Patient Status Disposition: Transfer Short-Term Hosp Condition: Fair Functional capacity at discharge: independent ambulation Overall status at discharge: patient is not back to baseline - Discharge Instructions [facility] - 01/29/17 8:30 am (THIS APPOINTMENT IS WITH THE BLUE TEAM) Interval History: Mr. Wells is a 46 year old male with past medical history of chronic pink otitis, alcohol abuse, CHF, COPD, diabetes, GERD, hyperlipidemia, hypertension and anxiety and depression. Patient presents as a transfer from [facility] ED for upper GI bleed and gastric outlet obstruction. He was transferred to [facility] and an NG tube was placed. CT of the abdomen and pelvis demonstrates severely distended stomach possibly due to partial obstruction with potential mass in the second portion of the duodenum. He was placed on IV Protonix drip, patient underwent EGD which demonstrated normal esophagus, excessive gastric fluid. Gastric varices, acquired duodenal stenosis which was biopsied, surgery was consult for evaluation after evaluation the patient's, reviewing the patient's medical records and imaging it was determined he was high risk and recommended transfer to higher acuity facility for further intervention. Mr. Wells is GI bleeding had ceased, he no longer has NG tube drainage while on NG tube suction. He remained stable and awaiting transfer to [facility] accepted by Roge Clark. Laboratory results of significance WBC count 6.5, hemoglobin 13.5, hematocrit 40.9, platelets 100, sodium 135, potassium 3.5 after replacement, chloride 86, CO2 36, BUN/creatinine 26 creatinine 0.88, GFR greater than 60, glucose 152 Patient be transferred to [facility] with NG tube suction. Hospital course: Mr. Wells is a 46 year old male - Time Spent with Patient Total time spent providing and/or coordinating discharge services: - Constitutional Vitals: Temp Pulse Resp BP Pulse Ox 98.0 F 76 16 129/62 95 01/13/17 11:14 01/13/17 14:03 01/13/17 14:03 01/13/17 11:14 01/13/17 14:03 General appearance: Present: cooperative, A&O X 2, no acute distress Exam: General: Patient alert, awake, oriented 3, interactive, in no acute distress HEENT: Normocephalic, atraumatic, pupils equal reactive to light, NG tube in place, oral mucosa dry, neck supple trachea midline no palpable lymphadenopathy , no thyromegaly. Chest: Symmetric bilateral correlating with respiratory effort, effort nonlabored. Cardiac: Regular rate and rhythm, positive S1 and S2. no bruits appreciated bilateral carotids, Radial pulses 2+ bilateral, posterior tibial and dorsal pedal pulses 2+ bilateral. Respiratory: Clear to auscultation all lung corcoran Abdomen: Soft, nontender, positive bowel sounds, no palpable masses appreciated on examination Extremities: Symmetric bilateral, bilateral lower extremities without erythema or edema patient moving all 4 extremities spontaneously. Neurologic: No focal deficits appreciated on examination. Face symmetric, muscle strength symmetric bilateral upper and lower extremities. <Marco Montes De Oca H - Last Filed: 01/13/17 16:46> Date of Encounter: 01/13/17 Procedures/tests Complete & Pending: Procedures Performed prior 72 hours Category Date Time Status ECG 12 lead ECG [ECG] Routine Y 01/12/17 07:02 Completed EV echocardiogram Stat Y 01/11/17 07:43 Completed Date of admission: 01/11/17 00:14 [facility] physician: [facility] Consults: 01/10/17 21:30 Consult to Physician [CONS] Routine Consulting Provider: Emil Mendiola Reason for Consult: gi bleed Call Completed: Yes 01/11/17 07:44 Consult to Cardiology [CONS] Routine Comment: Consulting Provider: Cardiology July Reason for Consult: Elevated Troponin Call Completed: No 01/11/17 18:52 Consult to Surgery [CONS] Routine Consulting Provider: [facility] Reason for Consult: gastric outlet obstruction, duodenal lesion Call Completed: No Hospital course: Mr. Wells is a 46 year old male - Time Spent with Patient Total time spent providing and/or coordinating discharge services: - Constitutional Vitals: Temp Pulse Resp BP Pulse Ox 97.7 F 90 16 117/69 96 01/13/17 16:10 01/13/17 16:10 01/13/17 16:10 01/13/17 16:10 01/13/17 16:10 - Attending Attestation acute blood loss anemia 2ry to upper GI bleed likely related to duodenal mass surgery recommended transfer to [facility] time spent: 40 min I examined this patient and my medical decision-making was reviewed with the Resident Physician. I agree with the documented findings, disposition and treatment plan as described except to the extent set forth below.
[2017-01-13 16:12] VITALS: BP 117/69
[2017-01-13] MEDS ORDERED: Pantoprazole 40 MG VIAL IVP SCH (18:00)
--- NOTE | 2017-01-13 20:02 | Electrocardiograph Report ---
[address] [address] Test Date: 2017-01-12 Pat Name: Mikel Wells Department: 115 Room: 2N05 Gender: M Benefits Representative: : 1970 Requested By: Marco Montes De Oca Order Number: [id number] Reading MD: Wilber Garza MD Measurements Intervals [place] Rate: 87 P: 58 NC: 171 QRS: 137 QRSD: 158 T: 47 QT: 476 QTc: 521 Interpretive Statements SINUS RHYTHM LEFT ATRIAL ENLARGEMENT INDETERMINATE AXIS RIGHT BUNDLE BRANCH BLOCK Electronically Signed On 01-13-2017 20:01:06 EST by Wilber Garza MD
== END 2017-01-13 19:05 | disposition short-term general hospital (02) | DRG 299 ==
LOC: 3ANU → SUATTDRO 01-11 00:14 → 2NNU 01-12 20:01
PROVIDERS: ADMIT Family Medicine; ATTEND Internal Medicine
PROC: ENDOEBX (2017-01-11 09:00)